=== PATIENT | female | born 1960 | race Caucasian/White ===

== ENCOUNTER 2023-12-11 07:36 | Emergency (ER) | payer OTHER, SELFPAY ==
[2023-12-11] VITALS (8 sets, daily range): BP systolic 141–193; BP diastolic 71–102; PULSE 71–80; BMI 24.4
[2023-12-11 08:27] LABS: % Basophils 0.3 % (0-2); % Eosinophils 0.6 % (0-6); % Immature Granulocytes 0.2 % (0-0.5); % Lymphocytes 21.1 % (20.5-51.1); % Monocytes 7.6 % (1.7-9.3); % Neutrophils 70.2 % (42.2-75.2); Absolute Eosinophils 0.1 10^3/uL (0-0.7); Absolute Lymphocytes 2.2 10^3/uL (1.2-3.4); Absolute Monocytes 0.8 10^3/uL (0.1-0.6); Absolute Neutrophils 7.3 10^3/uL (1.4-6.5); Hematocrit 43.9 % (37.0-47.0); Hemoglobin 14.5 g/dL (12.0-16.0); Mean Corpuscular Hgb 32.7 pg (27.0-31.0); Mean Corpuscular Volume 98.9 fL (81.0-99.0); Mean Platelet Volume 9.5 fL (7.4-10.4); Nucleated Red Blood Cells % 0 %; Platelet Count 267 10^3/uL (130-400); Red Blood Cell Count 4.44 10^6/uL (4.20-5.40); Red Cell Dist. Width 13.2 % (11.5-14.5); White Blood Cell Count 10.4 10^3/uL (4.8-10.8)
[2023-12-11 08:34] LABS: ALT (SGPT) 29 U/L (0-35); AST (SGOT) 26 U/L (14-36); Albumin 4.7 g/dl (3.5-5.0); Alkaline Phosphatase 93 U/L (38-126); Blood Urea Nitrogen 17 mg/dl (7-17); Calcium 10.5 mg/dl (8.4-10.2); Carbon Dioxide 27 mmol/L (22-30); Chloride 107 mmol/L (98-107); Estimated Creatinine Clearance 78 ml/min; Glucose 94 mg/dl (70-99); Potassium 3.9 mmol/L (3.5-5.1); Sodium 142 mmol/L (135-145); Total Bilirubin 0.3 mg/dl (0.2-1.3); Total Protein 7.4 g/dl (6.3-8.2); eGFR > 60.00
[2023-12-11 08:46] LABS: Troponin I < 0.012 ng/ml
--- NOTE | 2023-12-11 09:27 | ED.GENMED ---
History of Present Illness
General
Chief Complaint: Dizziness
Source: patient and spouse
Exam Limitations: none
Time Seen by Provider: 12/11/23 08:15
Nursing documentation reviewed up to this point in time: agreed with
Travel History
Have you had any contact with someone who has COVID-19?: No
Do you have any symptoms of coronavirus? Fever > 100 degrees, chills, cough, shortness of breath, sore throat, loss of taste or smell, muscle aches, or headache?: No
History of Present Illness
History of Present Illness:
63-year-old female with past medical history of hypertension who presents to the emergency room for evaluation of dizziness. Patient reports also symptoms a week ago and have been intermittent since that time. She reports sensation of room
spinning and feeling off balance. She says it seems to be worse in the morning and worse when she moves her head. Somewhat better as the day goes on. She reports associated nausea but no vomiting. She has had occasional mild headache. She
denies any recent URI symptoms�no cough, rhinorrhea/congestion, sore throat, ear fullness/pain. She says she had identical symptoms 5 years ago that was attributed to vertigo 'from crystals in my ear.' She denies any other neurologic symptoms such
as speech or vision change, weakness or numbness in her extremities.
Review of Systems
Review of Systems
All Other Systems: ROS reviewed and negative except as documented in HPI and ROS
Constitutional: Denies fever or chills
EENT: Denies sore throat or runny nose
Respiratory: Denies cough or trouble breathing
Cardiac: Denies chest pain or palpitations
ABD/GI: Reports nausea; Denies abdominal pain or vomiting
: Denies flank pain
Musculoskeletal: Denies neck pain or back pain
Neurological: Reports dizzy and headache; Denies weakness or numbness
Phy Exam
Physical Exam
Physical Exam:
General: Awake, alert, oriented x3; no acute distress
Head: Normocephalic, atraumatic
Eyes: Conjunctiva normal, EOMI with leftward nystagmus, pupils equal round and reactive to light bilaterally
Ears: TMs clear bilaterally
Throat: Airway intact, handling secretions
Neck: Trachea midline, supple without meningismus
Lungs: Clear to auscultation bilaterally, no wheezing, rales, rhonchi
Heart: Regular rate and rhythm, no murmurs, gallops, or rubs
Abd: Soft, non distended, nontender
Neuro: Cranial nerves intact, speech is fluid with no dysarthria or aphasia, no limb ataxia, motor and sensory function intact and symmetric upper and lower extremities
Skin: no rash
Extremities: No edema in extremities, equal pulses in all extremities
Scores
Heart Failure Risk
Heart Failure Risk Score: Not Applicable
Heart Score for Chest Pain Patients
STEMI patient?: Not applicable
Withdrawal Assessment of Alcohol
Withdrawal Assessment Completed?: Not applicable
Course
Orders/Labs/Results
Orders:
Orders
12/11/23 07:42
EKG [Electrocardiogram (*1)] Urgent
Reason for Study: Vertigo / Dizzy
EKG- Treatment ONCE
12/11/23 08:15
Complete Blood Count/With Diff Urgent
Comprehensive Metabolic Panel Urgent
Troponin I Urgent
12/11/23 09:03
COVID-19 Antigen Urgent
Source: Nasal Swab
Influenza A+B Rapid Molecular Urgent
MARK Source: Nasal Swab
Specimen Description:
12/11/23 09:26
CT Head W/o Iv Contrast Urgent
Comment:
Reason For Exam: dizziness, headache
Pt Eval And Treat Urgent
Treatment: vestibular eval--vertigo with leftward nystagmus
Activity Level: Ambulate
12/11/23 10:49
Meclizine [Antivert] 25 mg PO NOW STA
Abnormal Lab Results
12/11/23
08:15
MCH 32.7 H pg
(27.0-31.0)
Absolute Neuts (auto) 7.3 H 10^3/uL
(1.4-6.5)
Absolute Monos (auto) 0.8 H 10^3/uL
(0.1-0.6)
Calcium 10.5 H mg/dl
(8.4-10.2)
12/11/23 08:15
12/11/23 08:15
Vital Signs
Initial and Last Documented VS:
Initial Vital Signs
Temp Pulse Resp BP Pulse Ox
36.7 C 121 16 193/102 98
12/11/23 07:39 12/11/23 07:39 12/11/23 07:39 12/11/23 07:39 12/11/23 07:39
Last Documented Vital Signs
Temp Pulse Resp BP Pulse Ox
36.7 C 75 18 156/78 99
12/11/23 07:39 12/11/23 10:32 12/11/23 10:32 12/11/23 10:32 12/11/23 10:20
MDM/Problems Addressed
Differential Diagnosis Includes:
BPPV, M�ni�re disease, labyrinthitis, stroke or brain mass much less likely based on history and exam
MDM/Problems Addressed:
63-year-old female presents for evaluation of dizziness associate with nausea and headache intermittently for the past week similar prior episode of vertigo. Hypertensive and tachycardic on arrival�heart rate normalized by my assessment for blood
pressure still elevated. Physical exam as above�notably has leftward nystagmus. Will place an IV check basic labs, EKG. Given that she has had headache associated with her symptoms we will check CT head in an abundance of caution. Will consult
physical therapy for vestibular evaluation and Saroj maneuver. Will reassess after the above.
Initial labs reviewed: CBC and CMP unremarkable. She had a troponin sent in triage despite no chest pain or cardiac complaints�this was negative. Awaiting rest of workup.
CT head negative for any acute pathology. Evaluation by vestibular therapy.
PT evaluated and treated patient and provided resources for outpatient vestibular rehab. Patient feeling a bit better still have some mild dizziness treated with meclizine. Stable for discharge at this point; referred to ENT and vestibular rehab
as an outpatient. Patient comfortable with this plan. Spoke about return precautions all questions answered.
Acute Exacerbation and/or Progression of Chronic Illness:
Acutely hypertensive
Acute Exacerbation and/or Progression of Chronic Illness: HTN
*Radiology
Radiology exam reviewed: radiology read reviewed
*Pulse Oximetry
Patient hypoxic: no
*EKG
Interpreted by ED Provider?: Yes
Heart Rate: 109
Rate: tachycardiac
Rhythm: sinus
[place]: normal axis
Interval: normal interval
QRS Pattern: left bundle branch block
Ischemia: no ischemia
*Critical Care Note
Total Time (30-74mins, 75-104mins- exclusive of procedures): Not Applicable
Data Reviewed
Source: patient
Patient Management
Discussion with other providers: Other (Physical therapy)
ED Attending Note
-
Portions of this chart may have been created with voice recognition software.� Occasional wrong word or��sound alike� substitutions may have occurred due to the inherent limitations of voice recognition software.
Discharge Plan
Departure
Patient Disposition: Home (Routine Discharge)
Date of Disposition: 12/11/23
Time of Disposition: 11:07
Patient with high blood pressure during this ER visit?: Yes
Discharge Problem:
Vertigo, Hypertension
Instructions: Vertigo (a Type of Dizziness) (DC), BLOOD PRESSURE
Prescriptions:
New
meclizine 25 mg tablet
25 mg PO BID PRN (Reason: dizziness) Qty: 30 0RF
Referrals:
Rory Quiroga MD [Active] - Call in 1-3 days for appt (Ear, nose and throat doctor)
Hailey Zafar PA-C [Family Provider] - Call in 1-3 days for appt
Activity Restrictions/Additional Instructions:
Thank you for visiting the Emergency Department at [facility].
1. Please schedule a follow up appointment as directed. Call first thing tomorrow morning to make an appointment.
2. If indicated, please take your medications as instructed and indicated on discharge paperwork.
3. If any of your symptoms do not improve, or persist, or become more severe within 6-12 hours, please return to the emergency department for further care.
4. Please return to the emergency department if you develop a headache, neck pain/stiffness, fever greater than 100.4F, chest pain, shortness of breath, persistent nausea, vomiting, slurred speech, difficulty walking, numbness/tingling, weakness,
signs of infection or any other symptoms that are worrisome to you.
Please call [phone] if you have any questions.
Interventions
Interventions:
*Risk Screen - Suicide Last Done: 12/11/23 08:04
*General Assessment Last Done: 12/11/23 08:04
*Neglect/Abuse Screening Last Done: 12/11/23 08:04
ED- Neurological Assessment Last Done: 12/11/23 08:12
Discharge Date and Time
Print Language: SWEDISH
[2023-12-11 09:33] LABS: COVID-19 Antigen Negative (Negative)
[2023-12-11] MEDS: ANTIVERT 25 MG PO (11:10)
== END 2023-12-11 11:45 | disposition home or self-care (01) ==
LOC: EMR 07:36
PROVIDERS: Emergency Medicine; EMERGENCY PHYSICIAN Emergency Medicine; FAMILY PHYSICIAN Physician Assistant
DX: R42 Dizziness and giddiness (principal); I10 Essential (primary) hypertension; H55.00 Unspecified nystagmus
CPT/HCPCS: 99284; 70450; 80053; 84484; 85025; 87502; 87811; 93005